=== PATIENT | male | born 1995 | race Two or more races ===

== ENCOUNTER 2017-12-28 17:00 | Emergency (ER) | payer MEDICAID, OTHER ==
[~2017-12-28] VITALS: Ht 157.5 cm; Wt 54.0 kg
[2017-12-28 17:06] VITALS: BP 156/86
== END 2017-12-28 19:46 | disposition home or self-care (01) ==
LOC: ER 17:01
DX: R20.2 Paresthesia of skin (principal); M25.511 Pain in right shoulder; M79.604 Pain in right leg
CPT/HCPCS: 99284

== ENCOUNTER 2020-12-08 16:22 | Emergency (ER) | payer MEDICAID, OTHER ==
[~2020-12-08] VITALS: Ht 157.5 cm; Wt 56.8 kg
[2020-12-08 16:32] VITALS: BP 125/90
== END 2020-12-08 19:36 | disposition home or self-care (01) ==
LOC: ER 16:23
DX: B34.9 Viral infection, unspecified (principal); Z20.822 Contact with and (suspected) exposure to COVID-19
CPT/HCPCS: 71045; 87635; 99284; C9803